=== PATIENT | male | born 1990 | race Caucasian/White ===

== ENCOUNTER 2021-05-09 01:35 | Emergency (ER) | payer OTHER ==
[2021-05-09 01:51] VITALS: BP 150/91; PULSE 96; TEMP 99.2; BMI 25.7
== END 2021-05-09 02:29 | disposition home or self-care (01) ==
LOC: FER 01:35
DX: M25.572 Pain in left ankle and joints of left foot (principal); W19.XXXA Unspecified fall, initial encounter
CPT/HCPCS: 73610-TC-LT-FY; 73630-TC-LT; 99283-25